=== PATIENT | male | born 1985 | race Caucasian/White ===

== ENCOUNTER 2016-11-23 12:52 | Emergency (ER) | payer MEDICAID | END 2016-11-23 14:27 | disposition home or self-care (01) | LOC: D.ER 12:52 | DX: M25.562 Pain in left knee (principal); M25.561 Pain in right knee; S20.411A Abrasion of right back wall of thorax, initial encounter; W13.2XXA Fall from, out of or through roof, initial encounter; Y93.89 Activity, other specified; Y92.019 Unspecified place in single-family (private) house as the place of occurrence of the external cause; F17.200 Nicotine dependence, unspecified, uncomplicated ==